=== PATIENT | female | born 1990 | race Caucasian/White ===

== ENCOUNTER 2017-02-28 21:14 | Outpatient (CLI) | payer MEDICAID | END 2017-02-28 23:20 | disposition home or self-care (01) | LOC: OBT 21:14 → L-D 21:15 | DX: O99.513 Diseases of the respiratory system complicating pregnancy, third trimester (principal); J06.9 Acute upper respiratory infection, unspecified; H66.90 Otitis media, unspecified, unspecified ear; Z3A.36 36 weeks gestation of pregnancy | CPT/HCPCS: 76818 ==

== ENCOUNTER 2017-02-28 23:19 | Emergency (ER) | payer MEDICAID ==
[2017-03-01] MEDS: ACETAMINOPHEN 500 MG TAB PO (00:44)
== END 2017-03-01 00:45 | disposition home or self-care (01) ==
LOC: FTE 23:19
DX: O99.513 Diseases of the respiratory system complicating pregnancy, third trimester (principal); H66.91 Otitis media, unspecified, right ear; J06.9 Acute upper respiratory infection, unspecified
CPT/HCPCS: 99283; Z7502

== ENCOUNTER 2017-03-20 19:28 | Inpatient (IN) | payer MEDICAID ==
[2017-03-20] MEDS ORDERED: MISOPROSTOL 200 MCG TAB PR (22:00)
[2017-03-20] MEDS ORDERED: CARBOPROST 250 MCG INJ IM (22:00)
[2017-03-20] MEDS ORDERED: METHYLERGONOVINE 0.2 MG INJ IM (22:00)
[2017-03-20] MEDS ORDERED: LIDOCAINE 1% (MPF) 30 ML INJ INJ (22:00)
[2017-03-20] MEDS ORDERED: OXYTOCIN 30 UNITS/LR 500 ML IV (22:00)
[2017-03-20] MEDS ORDERED: HYDROCODONE/APAP (5/325) TAB PO (22:00)
[2017-03-20] MEDS: LACTATED RINGER'S 1,000 ML IV (23:34)
[2017-03-20 23:47] LABS: ADD MAN DIFF? NO
[2017-03-20] MEDS: AMPICILLIN 2 GM/NS (PMX) 100 ML IVPB (23:48)
[2017-03-20 23:50] LABS: WHITE BLOOD COUNT 10.3 10^3/ul (4.8-10.8)
[2017-03-20 23:50] LABS: BASOPHILS % 0.3 % (0.0-2.0); EOSINOPHILS # 0.1 10^3/ul (0.0-0.5); EOSINOPHILS % 0.8 % (0.0-7.0); HEMATOCRIT 35.3 % (37.0-47.0); HEMOGLOBIN 12.1 g/dl (12.0-16.0); LYMPHOCYTES # 2.3 10^3/ul (0.8-2.9); LYMPHOCYTES % 22.4 % (15.0-51.0); MEAN CORPUSCULAR HGB CONC 34.3 g/dl (32.0-37.0); MEAN CORPUSCULAR VOLUME 87.4 fl (82.0-101.0); MEAN PLATELET VOLUME 11.9 fl (7.4-10.4); MONOCYTES % 9.3 % (0.0-11.0); NEUTROPHIL # 6.9 10^3/ul (1.6-7.5); NEUTROPHILS % 66.7 % (39.0-77.0); PLATELET COUNT 295 10^3/UL (140-415); RED BLOOD COUNT 4.04 10^6/ul (4.20-5.40); RED CELL DISTRIBUTION WIDTH 12.2 % (11.5-14.5)
[2017-03-21 00:05] LABS: INR 1.03; PROTIME 13.6 Sec (11.9-14.9); PT RATIO 1.1
[2017-03-21 00:06] LABS: PARTIAL THROMBOPLASTIN TIME 26.3 Sec (25.0-35.0)
[2017-03-21] MEDS: AMPICILLIN 1 GM/NS (PMX) 50 ML IV ×5 (04:02→20:53)
[2017-03-21] MEDS: LACTATED RINGER'S 1,000 ML IV ×4 (06:06→22:14)
[2017-03-21] MEDS: OXYTOCIN 30 UNITS/LR 500 ML IV (09:31)
[2017-03-21 15:09] LABS: RAPID PLASMA REAGIN NONREACTIVE (NR)
[2017-03-21] MEDS: BUTORPHANOL 2 MG INJ IV (16:50)
[2017-03-21] MEDS ORDERED: NALOXONE (0.4 MG/ML) INJ IV (19:30)
[2017-03-21] MEDS ORDERED: ONDANSETRON 4 MG INJ IV (19:30)
[2017-03-21] MEDS ORDERED: DIPHENHYDRAMINE 50 MG INJ IV (19:30)
[2017-03-21] MEDS ORDERED: FENTAnyl 2MCG/ML-ROPIV 0.2% 100 ML BAG EPI (19:30)
[2017-03-22] MEDS: AMPICILLIN 1 GM/NS (PMX) 50 ML IV (00:10)
[2017-03-22] MEDS: LACTATED RINGER'S 1,000 ML IV (02:32)
[2017-03-22] MEDS: OXYTOCIN 30 UNITS/LR 500 ML IV ×3 (02:53→08:00)
[2017-03-22] MEDS ORDERED: HYDROCODONE/APAP (5/325) TAB PO ×2 (04:30)
[2017-03-22] MEDS ORDERED: OXYTOCIN 30 UNITS/LR 500 ML IV (04:30)
[2017-03-22] MEDS ORDERED: CARBOPROST 250 MCG INJ IM (04:30)
[2017-03-22] MEDS ORDERED: MISOPROSTOL 200 MCG TAB PR (04:30)
[2017-03-22] MEDS ORDERED: METHYLERGONOVINE 0.2 MG INJ IM (04:30)
[2017-03-22] MEDS ORDERED: DIBUCAINE 1% 30 GM OINT PR (04:30)
[2017-03-22] MEDS: IBUPROFEN 600 MG TAB PO ×5 (04:50→23:36)
[2017-03-22] MEDS: LACTATED RINGER'S 1,000 ML IV* ×2 (07:00→12:27)
[2017-03-22] MEDS: LANOLIN 7 GM TUBE TOP (08:11)
[2017-03-22] MEDS: BENZOCAINE 20% 56 ML SPRAY TOP (08:12)
[2017-03-22] MEDS: WITCH HAZEL/GLYCERIN PAD PR (08:12)
[2017-03-23] MEDS: IBUPROFEN 600 MG TAB PO ×3 (05:51→17:48)
[2017-03-23 08:57] LABS: WHITE BLOOD COUNT 6.7 10^3/ul (4.8-10.8)
[2017-03-23 08:57] LABS: HEMATOCRIT 29.8 % (37.0-47.0); HEMOGLOBIN 10.3 g/dl (12.0-16.0); MEAN CORPUSCULAR HEMOGLOBIN 30.3 pg (29.0-33.0); MEAN CORPUSCULAR HGB CONC 34.6 g/dl (32.0-37.0); MEAN CORPUSCULAR VOLUME 87.6 fl (82.0-101.0); MEAN PLATELET VOLUME 11.9 fl (7.4-10.4); NUCLEATED RED BLOOD CELLS% 0.3 /100WBC (0.0-0.0); PLATELET COUNT 225 10^3/UL (140-415); RED CELL DISTRIBUTION WIDTH 12.6 % (11.5-14.5)
[2017-03-23 09:00] LABS: ADD MAN DIFF? YES; POSITIVE DIFF @See below
[2017-03-23 11:00] LABS: ANISOCYTOSIS 1+ (0-0); BAND NEUTROPHILS % (M) 1 % (0-4); EOSINOPHILS % (M) 3 % (0-7); GIANT THROMBO% (M) 6 % (0-0); LYMPHOCYTES #M 1.2 10^3/ul (0.8-2.9); LYMPHOCYTES % (M) 18 % (15-51); MONOCYTE #M 0.4 10^3/ul (0.3-0.9); MONOCYTES % (M) 7 % (0-11); PLATELET ESTIMATE NORMAL; REACTIVE LYMPHOCYTES% (M) 1 % (0-0); SEG NEUT #M 4.7 10^3/ul (1.7-7.5); SEGMENTED NEUTROPHILS (M) % 70 % (39-77); SMUDGE%M 9 % (0-0)
[2017-03-24] MEDS: LANOLIN 7 GM TUBE TOP (00:13)
[2017-03-24] MEDS: IBUPROFEN 600 MG TAB PO ×3 (00:13→12:30)
[2017-03-24] MEDS: MEASLES,MUMPS,RUBELLA VACCINE INJ SC* (09:00)
[2017-03-24] MEDS: VARICELLA VACCINE LIVE/PF 1,350 UNIT/0.5 ML ML SC* (09:00)
[2017-03-24] MEDS: DIPHTH/TET/ACEL PERTUSS (ADULT) 0.5 ML VIAL IM* (12:29)
== END 2017-03-24 16:22 | disposition home or self-care (01) | DRG 775 ==
LOC: OBT 19:28 → PP1 03-22 05:50 → L-D 19:29 → OBT 21:52 → L-D 21:52
PROVIDERS: Obstetrics & Gynecology
PROC: 10E0XZZ Delivery of Products of Conception, External Approach (ICD-10-PCS; principal; 2017-03-22)
PROC: 0UQMXZZ Repair Vulva, External Approach (ICD-10-PCS; 2017-03-22)
DX: O71.82 Other specified trauma to perineum and vulva (principal); Z37.0 Single live birth; Z3A.39 39 weeks gestation of pregnancy
CPT/HCPCS: 62319; 76818; 85025; 85610; 85730; 86592; 86900; 86901; 90715; 90716

== ENCOUNTER 2017-04-17 12:20 | Emergency (ER) | payer MEDICAID | END 2017-04-17 13:51 | disposition home or self-care (01) | LOC: E/R 12:20 | DX: N64.4 Mastodynia (principal) | CPT/HCPCS: 99283; Z7502 ==

== ENCOUNTER 2017-08-09 10:02 | Emergency (ER) | payer MEDICAID ==
[2017-08-09] MEDS: ONDANSETRON (ODT) 4 MG TAB ODT (10:18)
[2017-08-09] MEDS: HYDROmorphONE 2 MG/ML SYG IV (10:19)
[2017-08-09] MEDS ORDERED: IBUPROFEN 800 MG TAB PO (12:30)
== END 2017-08-09 12:11 | disposition home or self-care (01) ==
LOC: E/R 10:02
DX: S93.492A Sprain of other ligament of left ankle, initial encounter (principal); W10.8XXA Fall (on) (from) other stairs and steps, initial encounter; Y92.9 Unspecified place or not applicable
CPT/HCPCS: 29515; 73610; 73630-LT; 96374; 99284-25